=== PATIENT | female | born 1965 | race Caucasian/White ===

== ENCOUNTER → 2022-08-03 | Outpatient (CLI) | payer OTHER ==
[~2022-08-03] MED LIST: MOTRIN800 MG PO; VITAMIN D50000 I2 PO
[2022-08-03 19:34] LABS: BUN 8 mg/dl (9-23); CHLORIDE 107 mmol/L (98-107); POTASSIUM 3.7 mmol/L (3.4-5.1)
== END | disposition home or self-care (01) ==
LOC: LAB 18:28
PROVIDERS: ATTEND Radiology Therapeutic Radiology
DX: C78.7 Secondary malignant neoplasm of liver and intrahepatic bile duct (principal)